=== PATIENT | male | born 1950 | race Caucasian/White ===

== ENCOUNTER 2020-04-27 07:13 | Inpatient (IN) | payer OTHER ==
[~2020-04-27] VITALS: Ht 188 cm; Wt 105.5 kg
[~2020-04-27 07:13] MED LIST: NAPR-996 PO
[2020-04-27] MEDS ORDERED: methylPREDNISolone sod succ 125mg/2ml vial IV ONE (09:25)
[2020-04-27] MEDS ORDERED: normal saline 1000ML IV soln IVB ONE ×2 (09:25→11:20)
[2020-04-27 10:04] LABS: BASOPHILS % (AUTO) 0.2 % (0-1); EOSINOPHILS % (AUTO) 0.1 % (0-6); HEMATOCRIT 53.5 % (42.0-52.0); LYMPHOCYTES # (AUTO) 1.1 X10'3 (1.1-4.8); LYMPHOCYTES % (AUTO) 7.4 % (21-51); MEAN CORPUSCULAR HEMOGLOBIN 29.3 PG (27.0-31.0); MEAN CORPUSCULAR HGB CONC 33.6 g/dL (33.0-36.5); MEAN CORPUSCULAR VOLUME 87.1 FL (78-98); MEAN PLATELET VOLUME 7.6 FL (7.4-10.4); MONOCYTES % (AUTO) 6.9 % (2-12); NEUTROPHILS # (AUTO) 12.4 X10'3 (1.8-7.7); NEUTROPHILS % (AUTO) 85.4 % (42-75); PLATELET COUNT 236 X10'3 (140-440); RED BLOOD COUNT 6.14 X10'6 (4.70-6.10); RED CELL DISTRIBUTION WIDTH 13.4 % (11.5-14.5); WHITE BLOOD COUNT 14.6 X10'3 (4.5-11.0)
[2020-04-27 10:16] LABS: ALANINE AMINOTRANSFERASE 29 U/L (12-78); ALBUMIN 3.3 G/DL (3.4-5.0); ALBUMIN/GLOBULIN RATIO 0.7 (1.1-1.5); ALKALINE PHOSPHATASE 99 IU/L (46-116); ANION GAP 10 (8-16); ASPARTATE AMINO TRANSFERASE 22 U/L (10-37); BILIRUBIN,TOTAL 0.8 MG/DL (0.1-1.0); BLOOD UREA NITROGEN 34 MG/DL (7-18); BUN/CREATININE RATIO 16.1 (5.4-32.0); CALCIUM 9.7 MG/DL (8.5-10.1); CHLORIDE 98 MMOL/L (99-107); CREATININE 2.11 MG/DL (0.60-1.10); GLUCOSE 142 MG/DL (70-104); POTASSIUM 3.8 MMOL/L (3.5-5.1); SODIUM 135 MMOL/L (135-145); TOTAL CARBON DIOXIDE 26.6 MMOL/L (24-32); TOTAL PROTEIN 8.2 G/DL (6.4-8.2); eGFR 31 ML/MIN
[2020-04-27 10:19] LABS: PARTIAL THROMBOPLASTIN TIME 31 SECONDS (22-32)
[2020-04-27 10:21] LABS: D-DIMER > 35.20 MG/L FEU (0-0.50)
[2020-04-27] MEDS ORDERED: aspirin 81mg tab.chew PO ONE (10:35)
[2020-04-27 10:40] LABS: LACTATE DEHYDROGENASE 299 U/L (85-227)
[2020-04-27] MEDS ORDERED: nitroGLYCERIN 0.4mg/hour patch TD ONE (12:00)
[2020-04-27] MEDS ORDERED: ATOR20TA66 PO (12:04)
[2020-04-27] MEDS ORDERED: LISI1TAB32 PO (12:04)
[2020-04-27] MEDS ORDERED: heparin 10,000 units/1 ML INJ IV ONE (14:20)
[2020-04-27] MEDS: heparin 25,000 UNIT/250ml bag 250 ML IV SCH (14:47)
[2020-04-27] MEDS ORDERED: LISI1TAB29 PO (15:22)
[2020-04-27 16:33] LABS: CLARITY,URINE SLIGHTLY CLOUDY (Clear); COLOR,URINE YELLOW (Yellow); GLUCOSE, URINE NEGATIVE (Neg); KETONES,URINE TRACE mg/dl (Neg); LEUKOCYTE ESTERASE ,URINE NEGATIVE (Neg); NITRITES, URINE NEGATIVE (Neg); OCCULT BLOOD,URINE MODERATE (Neg); PH,URINE 5.5 (4.8-8.0); PROTEIN,URINE TRACE mg/dl (Neg); UROBILINOGEN,URINE 0.2 E.U/dL (0.2-1.0)
[2020-04-27 16:43] LABS: UA COLLECTION TYPE VOIDED
[2020-04-27 16:45] LABS: COARSE GRANULAR CAST 0-3 /LPF (NEGATIVE); HYALINE CASTS >30 /LPF (NEGATIVE); MUCUS STRANDS MANY /LPF (Neg); SQUAMOUS EPITHELIAL CELL,UR FEW /LPF (FEW)
[2020-04-27 16:47] LABS: AMORPHOUS URATES 1+; BACTERIA,URINE NONE SEEN /HPF (Neg); WBC,URINE 0-4 /HPF (0-4)
[2020-04-27] MEDS ORDERED: potassium CL 10mEq/100ml bag 100 ML IV PRN ×2 (18:30)
[2020-04-27] MEDS ORDERED: morphine 2 MG/ML inj. syringe IV PRN ×2 (18:30)
[2020-04-27] MEDS ORDERED: magnesium 4gm in 100ml NS 100 ML IV PRN (18:30)
[2020-04-27] MEDS ORDERED: magnesium 2GM in 50ml NS 50 ML IV PRN (18:30)
[2020-04-27] MEDS ORDERED: ondansetron/PF 4mg/2ml inj IV PRN (18:30)
[2020-04-27] MEDS ORDERED: magnesium hydroxide 30ml (MOM) UD suspension PO PRN (18:30)
[2020-04-27] MEDS ORDERED: mag hydrox/Alum hydrox/simeth 30ml oral suspension PO PRN (18:30)
[2020-04-27] MEDS ORDERED: diphenhydrAMINE 25mg capsule PO PRN (18:30)
[2020-04-27] MEDS ORDERED: potassium Cl 20 mEq SR tablet PO PRN ×2 (18:30)
[2020-04-27] MEDS ORDERED: ipratropium/albuterol 3ml nebule NEB PRN (18:30)
[2020-04-27] MEDS ORDERED: bisacodyl 10mg suppository rectal RC PRN (18:30)
[2020-04-27] MEDS ORDERED: acetaminophen 325mg tablet PO PRN ×2 (18:30)
[2020-04-27] MEDS ORDERED: magnesium Cl slow-release 64mg tablet PO PRN (18:30)
[2020-04-27] MEDS ORDERED: acetaminophen 650mg rectal suppository RC PRN (18:30)
--- NOTE | 2020-04-27 18:37 | NUR ---
PATIENTS DAUGHTER CALLED PHONE # [phone]
--- NOTE | 2020-04-27 18:59 | NUR ---
technology analyst at bedside
[2020-04-27 19:09] LABS: HEMOGLOBIN A1C 5.9 % (4.5-6.2)
[2020-04-27] MEDS: K and/or MAG REPLACEMENT MC SCH (20:00)
--- NOTE | 2020-04-27 20:03 | NUR ---
CALLED PCU TO GIVE REPORT
[2020-04-27 20:45] VITALS: BP 128/64
--- NOTE | 2020-04-27 20:45 | NUR ---
RECEIVED PATIENT TO ROOM 3023C IN STABLE CONDITION
[2020-04-27] MEDS: ipratropium/albuterol 3ml nebule NEB SCH (21:29)
[2020-04-28 02:00] VITALS: BP 130/74
[2020-04-28 02:13] LABS: ALANINE AMINOTRANSFERASE 22 U/L (12-78); ALBUMIN 2.8 G/DL (3.4-5.0); ALBUMIN/GLOBULIN RATIO 0.6 (1.1-1.5); ALKALINE PHOSPHATASE 87 IU/L (46-116); ANION GAP 9 (8-16); ASPARTATE AMINO TRANSFERASE 24 U/L (10-37); BILIRUBIN,TOTAL 0.6 MG/DL (0.1-1.0); BLOOD UREA NITROGEN 41 MG/DL (7-18); BUN/CREATININE RATIO 22.8 (5.4-32.0); CALCIUM 9.3 MG/DL (8.5-10.1); CHLORIDE 105 MMOL/L (99-107); CHOL/HDL RATIO 4.6 (0.00-4.99); CHOLESTEROL 146 MG/DL (0-200); GLUCOSE 202 MG/DL (70-104); HDL CHOLESTEROL 32 MG/DL (35-60); LDL CHOLESTEROL 102 MG/DL (50-100); MAGNESIUM 2.1 MG/DL (1.5-2.4); PHOSPHORUS 1.5 MG/DL (2.3-4.5); POTASSIUM 4.1 MMOL/L (3.5-5.1); SODIUM 138 MMOL/L (135-145); TOTAL CARBON DIOXIDE 24.1 MMOL/L (24-32); TOTAL PROTEIN 7.4 G/DL (6.4-8.2); TRIGLYCERIDES 105 MG/DL (20-135); eGFR 38 ML/MIN
[2020-04-28 02:19] LABS: BASOPHILS % (AUTO) 0.2 % (0-1); EOSINOPHILS % (AUTO) 0 % (0-6); HEMATOCRIT 48.3 % (42.0-52.0); HEMOGLOBIN 16.3 g/dl (14.0-17.9); LYMPHOCYTES # (AUTO) 0.8 X10'3 (1.1-4.8); LYMPHOCYTES % (AUTO) 5.3 % (21-51); MEAN CORPUSCULAR HEMOGLOBIN 29.5 PG (27.0-31.0); MEAN CORPUSCULAR HGB CONC 33.8 g/dL (33.0-36.5); MEAN CORPUSCULAR VOLUME 87.1 FL (78-98); MEAN PLATELET VOLUME 7.7 FL (7.4-10.4); MONOCYTES # (AUTO) 0.8 X10'3 (0-0.9); MONOCYTES % (AUTO) 5.6 % (2-12); NEUTROPHILS # (AUTO) 12.8 X10'3 (1.8-7.7); NEUTROPHILS % (AUTO) 88.9 % (42-75); PLATELET COUNT 225 X10'3 (140-440); RED BLOOD COUNT 5.54 X10'6 (4.70-6.10); RED CELL DISTRIBUTION WIDTH 13.4 % (11.5-14.5); WHITE BLOOD COUNT 14.4 X10'3 (4.5-11.0)
[2020-04-28] MEDS: normal saline 1000ml 1,000 ML IV SCH ×4 (02:26→23:04)
[2020-04-28] MEDS: heparin 10,000 units/1 ML INJ IV PRN ×2 (02:27→12:02)
[2020-04-28] MEDS: ipratropium/albuterol 3ml nebule NEB SCH ×4 (03:08→21:30)
[2020-04-28 06:00] VITALS: BP 154/92
--- NOTE | 2020-04-28 06:16 | NUR ---
REPORT GIVEN TO DARYA SAEED
--- NOTE | 2020-04-28 06:33 | NUR ---
Patient in room U 3023. I have received report from Floresita SAEED and had the opportunity to ask questions and assume patient care. Patient was sleeping at time of report.
[2020-04-28] MEDS: HYDROchlorothiazide 25mg tablet PO SCH (07:07)
[2020-04-28] MEDS: lisinopril 20mg tablet PO SCH (07:09)
[2020-04-28] MEDS: heparin 25,000 UNIT/250ml bag 250 ML IV SCH ×3 (07:18→20:53)
[2020-04-28] MEDS: K and/or MAG REPLACEMENT MC SCH ×2 (08:00→20:00)
--- NOTE | 2020-04-28 09:39 | NUR ---
Paged Dr. Moon regarding critical "Carlos Jackson RM 1394T critical PTT 127, following protocol. Thanks, Sherry SAEED [id number]"
[2020-04-28 11:00] VITALS: BP 127/87
[2020-04-28 15:00] VITALS: BP 140/91
[2020-04-28 18:00] VITALS: BP 141/96
--- NOTE | 2020-04-28 18:19 | NUR ---
[place] documentation: I have reviewed and agree with all interventions, assessments performed and documented by CHRISTOPHE Powell.
--- NOTE | 2020-04-28 18:20 | NUR ---
[place] Medication Administration: For this medication-pass time frame, all medication were reviewed, dispensed, administered and documented per hospital policy by CHRISTOPHE Powell.
--- NOTE | 2020-04-28 18:42 | NUR ---
Problems reprioritized. Patient report given, questions answered & plan of care reviewed with CHRISTOPHE Oh. Informed nurse that pt's DVT PTT should be resulting soon, it should have been drawn at 1800, call lab if results don't populate soon. Pt resting comfortably. All pt needs met at this time.
[2020-04-28 22:00] VITALS: BP 137/87
[2020-04-29] VITALS (10 sets, daily range): BP systolic 112–156; BP diastolic 72–92
[2020-04-29] MEDS: ipratropium/albuterol 3ml nebule NEB SCH ×4 (03:07→21:07)
[2020-04-29] MEDS: heparin 25,000 UNIT/250ml bag 250 ML IV SCH (03:23)
[2020-04-29 04:01] LABS: BASOPHILS # (AUTO) 0.1 X10'3 (0-0.2); BASOPHILS % (AUTO) 0.7 % (0-1); EOSINOPHILS % (AUTO) 0.2 % (0-6); HEMATOCRIT 43.4 % (42.0-52.0); HEMOGLOBIN 14.7 g/dl (14.0-17.9); LYMPHOCYTES # (AUTO) 1.7 X10'3 (1.1-4.8); LYMPHOCYTES % (AUTO) 11.3 % (21-51); MEAN CORPUSCULAR HEMOGLOBIN 29.3 PG (27.0-31.0); MEAN CORPUSCULAR HGB CONC 33.8 g/dL (33.0-36.5); MEAN CORPUSCULAR VOLUME 86.7 FL (78-98); MEAN PLATELET VOLUME 7.7 FL (7.4-10.4); MONOCYTES # (AUTO) 0.9 X10'3 (0-0.9); MONOCYTES % (AUTO) 6.3 % (2-12); NEUTROPHILS # (AUTO) 12.2 X10'3 (1.8-7.7); NEUTROPHILS % (AUTO) 81.5 % (42-75); PLATELET COUNT 224 X10'3 (140-440); RED BLOOD COUNT 5.01 X10'6 (4.70-6.10); RED CELL DISTRIBUTION WIDTH 13.4 % (11.5-14.5)
[2020-04-29 04:23] LABS: ALANINE AMINOTRANSFERASE 43 U/L (12-78); ALBUMIN 2.4 G/DL (3.4-5.0); ALBUMIN/GLOBULIN RATIO 0.6 (1.1-1.5); ALKALINE PHOSPHATASE 78 IU/L (46-116); ANION GAP 7 (8-16); ASPARTATE AMINO TRANSFERASE 33 U/L (10-37); BILIRUBIN,TOTAL 0.4 MG/DL (0.1-1.0); BLOOD UREA NITROGEN 37 MG/DL (7-18); BUN/CREATININE RATIO 26.2 (5.4-32.0); CALCIUM 8.8 MG/DL (8.5-10.1); CHLORIDE 107 MMOL/L (99-107); CREATININE 1.41 MG/DL (0.60-1.10); GLUCOSE 125 MG/DL (70-104); MAGNESIUM 1.9 MG/DL (1.5-2.4); PHOSPHORUS 2.1 MG/DL (2.3-4.5); POTASSIUM 4.1 MMOL/L (3.5-5.1); SODIUM 140 MMOL/L (135-145); TOTAL CARBON DIOXIDE 25.7 MMOL/L (24-32); TOTAL PROTEIN 6.3 G/DL (6.4-8.2); eGFR 50 ML/MIN
--- NOTE | 2020-04-29 06:00 | NUR ---
Patient in room PCU 3023C. I have received report from Althea SAEED and had the opportunity to ask questions and assume patient care.
[2020-04-29] MEDS: K and/or MAG REPLACEMENT MC SCH ×2 (08:00→20:00)
[2020-04-29] MEDS: HYDROchlorothiazide 25mg tablet PO SCH (09:33)
[2020-04-29] MEDS: lisinopril 20mg tablet PO SCH (09:33)
[2020-04-29] MEDS: normal saline 1000ml 1,000 ML IV SCH ×2 (09:35→18:57)
[2020-04-29] MEDS ORDERED: iohexol 350MG/ML 100ml bottle IV ONE (12:15)
--- NOTE | 2020-04-29 12:41 | NUR ---
I have reviewed and agree with all medications administered and interventions performed by DISEASE CONTROL INSPECTOR Student(HOWARD MARTINEZ
[2020-04-29] MEDS ORDERED: midazolam 2 mg/2 ml injection ONE (15:15)
[2020-04-29] MEDS ORDERED: fentaNYL/PF 50MCG/1 ML 2ML syringe ONE (15:15)
[2020-04-29] MEDS ORDERED: iohexol 300mg/ml 100ml inj. ONE (15:25)
[2020-04-29] MEDS ORDERED: LIDOcaine 1%/PF 5ML 10 MG/ML VIAL ONE (15:25)
--- NOTE | 2020-04-29 16:50 | NUR ---
Pt taken down to Angio with Angio nurse for cath placement for TPA
[2020-04-29] MEDS ORDERED: diphenhydrAMINE 50 mg/ml inj ONE (17:09)
--- NOTE | 2020-04-29 17:55 | NUR ---
pt arrived from IR at this time. he is pleasant. alert and oriented. able to read lips. vital signs WNL's on 2L NC. continue to monitor.
--- NOTE | 2020-04-29 18:10 | NUR ---
Pt reached 4 hour timur for lying flat. groin clean dry and intact. Pt sitting up eating dinner now Addendum: 04/29/20 at 1832 by Trae Caruso RN wrong pt.
--- NOTE | 2020-04-29 18:32 | NUR ---
Problems reprioritized. Patient report given, questions answered & plan of care reviewed with Valerie SAEED.
[2020-04-29] MEDS: HYDROcodone/acetaminophen 5mg/325mg tablet PO PRN (21:03)
[2020-04-29] MEDS: tPA-cathflo 2mg/2ml IV flush 4 MG in normal saline 100ml IV soln 100 ML ICATH SCH (21:17)
[2020-04-29] MEDS: heparin 1,000 UNITS/NS 500ml 500 ML IV SCH (21:24)
[2020-04-30] VITALS (17 sets, daily range): BP systolic 127–158; BP diastolic 76–91
[2020-04-30] MEDS: tPA-cathflo 2mg/2ml IV flush 4 MG in normal saline 100ml IV soln 100 ML ICATH SCH ×4 (00:40→09:18)
[2020-04-30] MEDS: HYDROcodone/acetaminophen 5mg/325mg tablet PO PRN (01:42)
[2020-04-30] MEDS: ipratropium/albuterol 3ml nebule NEB SCH ×4 (02:00→20:38)
[2020-04-30] MEDS: heparin 1,000 UNITS/NS 500ml 500 ML IV SCH (02:24)
[2020-04-30] MEDS: normal saline 1000ml 1,000 ML IV SCH ×2 (04:28→13:56)
[2020-04-30 05:11] LABS: BASOPHILS % (AUTO) 0.3 % (0-1); EOSINOPHILS # (AUTO) 0.1 X10'3 (0-0.9); HEMATOCRIT 43.4 % (42.0-52.0); HEMOGLOBIN 14.6 g/dl (14.0-17.9); LYMPHOCYTES # (AUTO) 1.2 X10'3 (1.1-4.8); LYMPHOCYTES % (AUTO) 11.7 % (21-51); MEAN CORPUSCULAR HEMOGLOBIN 29.3 PG (27.0-31.0); MEAN CORPUSCULAR HGB CONC 33.8 g/dL (33.0-36.5); MEAN CORPUSCULAR VOLUME 86.8 FL (78-98); MEAN PLATELET VOLUME 7.6 FL (7.4-10.4); MONOCYTES # (AUTO) 0.9 X10'3 (0-0.9); MONOCYTES % (AUTO) 8.7 % (2-12); NEUTROPHILS # (AUTO) 7.9 X10'3 (1.8-7.7); NEUTROPHILS % (AUTO) 78.3 % (42-75); PLATELET COUNT 197 X10'3 (140-440); RED BLOOD COUNT 4.99 X10'6 (4.70-6.10); RED CELL DISTRIBUTION WIDTH 13.5 % (11.5-14.5); WHITE BLOOD COUNT 10.1 X10'3 (4.5-11.0)
[2020-04-30 05:26] LABS: ALANINE AMINOTRANSFERASE 43 U/L (12-78); ALBUMIN 2.4 G/DL (3.4-5.0); ALBUMIN/GLOBULIN RATIO 0.6 (1.1-1.5); ALKALINE PHOSPHATASE 77 IU/L (46-116); ANION GAP 9 (8-16); ASPARTATE AMINO TRANSFERASE 26 U/L (10-37); BILIRUBIN,TOTAL 0.6 MG/DL (0.1-1.0); BLOOD UREA NITROGEN 23 MG/DL (7-18); BUN/CREATININE RATIO 17.4 (5.4-32.0); CALCIUM 8.3 MG/DL (8.5-10.1); CHLORIDE 106 MMOL/L (99-107); CREATININE 1.32 MG/DL (0.60-1.10); GLUCOSE 104 MG/DL (70-104); MAGNESIUM 1.7 MG/DL (1.5-2.4); PHOSPHORUS 3.4 MG/DL (2.3-4.5); SODIUM 139 MMOL/L (135-145); TOTAL CARBON DIOXIDE 24.1 MMOL/L (24-32); TOTAL PROTEIN 6.2 G/DL (6.4-8.2); eGFR 54 ML/MIN
--- NOTE | 2020-04-30 06:15 | NUR ---
Patient in room CICU 2013. I have received report from RN and had the opportunity to ask questions and assume patient care.
[2020-04-30] MEDS: lisinopril 20mg tablet PO SCH (08:49)
[2020-04-30] MEDS: HYDROchlorothiazide 25mg tablet PO SCH (08:49)
[2020-04-30] MEDS: K and/or MAG REPLACEMENT MC SCH ×2 (08:51→20:00)
[2020-04-30] MEDS: HYDROcodone/acetaminophen 10/325mg tab PO PRN ×3 (10:49→17:38)
[2020-04-30] MEDS ORDERED: heparin 10,000 units/1 ML INJ IV PRN (11:50)
[2020-04-30] MEDS ORDERED: heparin 10,000 units/1 ML INJ IV ONE (11:50)
--- NOTE | 2020-04-30 12:00 | NUR ---
RT IJ cath removed by IR at 1100. Dressing CDL
[2020-04-30] MEDS: heparin 25,000 UNIT/250ml bag 250 ML IV SCH (13:00)
--- NOTE | 2020-04-30 14:30 | NUR ---
Problems reprioritized. Patient report given, questions answered & plan of care reviewed with Trae SAEED.
--- NOTE | 2020-04-30 14:34 | NUR ---
received report from Thuy SAEED CICU. had opportunity to ask questions concerning Pt care. Awaiting Pt arrival to room 3011S
--- NOTE | 2020-04-30 15:15 | NUR ---
PT taken to 3014b with al belongings.
--- NOTE | 2020-04-30 18:45 | NUR ---
Problems reprioritized. Patient report given, questions answered & plan of care reviewed with Maximo RN
--- NOTE | 2020-04-30 19:44 | NUR ---
Page Sent to Nic per critical high PTT promotional table spacer PAGER ID: [phone] MESSAGE: [id number] - Ankita Gonzalez 69M - Pt critically high DVT PTT of 139. Protocol to inform you, stopped heparin gtt now, will hold 2hrs, will decrease rate by 3units/kg/hr. Redraw PTT in 6hrs from rate change. [phone] Maximo
[2020-05-01] MEDS: normal saline 1000ml 1,000 ML IV SCH ×3 (01:37→23:46)
[2020-05-01] MEDS: ipratropium/albuterol 3ml nebule NEB SCH ×4 (02:00→20:23)
[2020-05-01] MEDS: HYDROcodone/acetaminophen 10/325mg tab PO PRN ×4 (02:15→20:19)
[2020-05-01 02:34] VITALS: BP 162/86
[2020-05-01] MEDS: heparin 25,000 UNIT/250ml bag 250 ML IV SCH ×2 (04:32→18:51)
[2020-05-01 05:48] LABS: ALANINE AMINOTRANSFERASE 34 U/L (12-78); ALBUMIN 2.4 G/DL (3.4-5.0); ALBUMIN/GLOBULIN RATIO 0.6 (1.1-1.5); ALKALINE PHOSPHATASE 75 IU/L (46-116); ANION GAP 6 (8-16); ASPARTATE AMINO TRANSFERASE 18 U/L (10-37); BILIRUBIN,TOTAL 0.6 MG/DL (0.1-1.0); BLOOD UREA NITROGEN 17 MG/DL (7-18); BUN/CREATININE RATIO 12.3 (5.4-32.0); CHLORIDE 105 MMOL/L (99-107); CREATININE 1.38 MG/DL (0.60-1.10); GLUCOSE 110 MG/DL (70-104); MAGNESIUM 1.7 MG/DL (1.5-2.4); PHOSPHORUS 2.9 MG/DL (2.3-4.5); SODIUM 138 MMOL/L (135-145); TOTAL CARBON DIOXIDE 26.7 MMOL/L (24-32); TOTAL PROTEIN 6.4 G/DL (6.4-8.2); eGFR 51 ML/MIN
[2020-05-01 06:00] VITALS: BP 153/86
[2020-05-01 06:28] LABS: BASOPHILS % (AUTO) 0.2 % (0-1); EOSINOPHILS # (AUTO) 0.2 X10'3 (0-0.9); HEMATOCRIT 43.1 % (42.0-52.0); HEMOGLOBIN 14.8 g/dl (14.0-17.9); LYMPHOCYTES # (AUTO) 1.1 X10'3 (1.1-4.8); LYMPHOCYTES % (AUTO) 11.4 % (21-51); MEAN CORPUSCULAR HEMOGLOBIN 30.2 PG (27.0-31.0); MEAN CORPUSCULAR HGB CONC 34.5 g/dL (33.0-36.5); MEAN CORPUSCULAR VOLUME 87.5 FL (78-98); MEAN PLATELET VOLUME 7.6 FL (7.4-10.4); MONOCYTES # (AUTO) 0.7 X10'3 (0-0.9); MONOCYTES % (AUTO) 7.7 % (2-12); NEUTROPHILS # (AUTO) 7.6 X10'3 (1.8-7.7); NEUTROPHILS % (AUTO) 78.7 % (42-75); PLATELET COUNT 201 X10'3 (140-440); RED BLOOD COUNT 4.92 X10'6 (4.70-6.10); RED CELL DISTRIBUTION WIDTH 13.2 % (11.5-14.5); WHITE BLOOD COUNT 9.7 X10'3 (4.5-11.0)
--- NOTE | 2020-05-01 06:39 | NUR ---
Problems reprioritized. Patient report given, questions answered & plan of care reviewed with Carmen SAEED.
--- NOTE | 2020-05-01 06:47 | NUR ---
Patient in room PCU 3014. I have received report from Maximo SAEED and had the opportunity to ask questions and assume patient care.
[2020-05-01] MEDS: K and/or MAG REPLACEMENT MC SCH ×2 (07:31→20:00)
[2020-05-01] MEDS: HYDROchlorothiazide 25mg tablet PO SCH (07:41)
[2020-05-01] MEDS: lisinopril 20mg tablet PO SCH (07:41)
[2020-05-01 11:00] VITALS: BP 134/84
[2020-05-01 15:00] VITALS: BP 170/88
[2020-05-01 18:00] VITALS: BP 159/88
--- NOTE | 2020-05-01 18:12 | NUR ---
Patient in room PCU 3014. I have received report from Carmen SAEED and had the opportunity to ask questions and assume patient care.
--- NOTE | 2020-05-01 18:15 | NUR ---
Problems reprioritized. Patient report given, questions answered & plan of care reviewed with Osmel.
--- NOTE | 2020-05-01 18:55 | NUR ---
IV Heparin dose is therapeutic thoughout shift, The dose is 1400 units
[2020-05-01 22:00] VITALS: BP 161/85
--- NOTE | 2020-05-02 00:41 | NUR ---
2330 PTT is therapeutic at 51, no change in rate nor bolus required. Will reschedule PTT for 529 .
[2020-05-02] MEDS: heparin 25,000 UNIT/250ml bag 250 ML IV SCH ×2 (00:55→21:13)
[2020-05-02 02:00] VITALS: BP 169/90
[2020-05-02] MEDS: ipratropium/albuterol 3ml nebule NEB SCH ×4 (02:00→19:57)
[2020-05-02] MEDS: HYDROcodone/acetaminophen 10/325mg tab PO PRN ×3 (02:12→22:59)
[2020-05-02 06:00] VITALS: BP 158/87
[2020-05-02 06:09] LABS: BASOPHILS % (AUTO) 0.2 % (0-1); EOSINOPHILS # (AUTO) 0.3 X10'3 (0-0.9); EOSINOPHILS % (AUTO) 2.5 % (0-6); HEMATOCRIT 42.1 % (42.0-52.0); HEMOGLOBIN 14.2 g/dl (14.0-17.9); LYMPHOCYTES # (AUTO) 0.9 X10'3 (1.1-4.8); LYMPHOCYTES % (AUTO) 8.1 % (21-51); MEAN CORPUSCULAR HEMOGLOBIN 29.3 PG (27.0-31.0); MEAN CORPUSCULAR HGB CONC 33.7 g/dL (33.0-36.5); MEAN CORPUSCULAR VOLUME 87.1 FL (78-98); MEAN PLATELET VOLUME 7.5 FL (7.4-10.4); MONOCYTES # (AUTO) 0.8 X10'3 (0-0.9); MONOCYTES % (AUTO) 7.6 % (2-12); NEUTROPHILS % (AUTO) 81.6 % (42-75); PLATELET COUNT 231 X10'3 (140-440); RED BLOOD COUNT 4.83 X10'6 (4.70-6.10); RED CELL DISTRIBUTION WIDTH 13.4 % (11.5-14.5)
[2020-05-02 06:30] LABS: ALANINE AMINOTRANSFERASE 28 U/L (12-78); ALBUMIN 2.3 G/DL (3.4-5.0); ALBUMIN/GLOBULIN RATIO 0.5 (1.1-1.5); ALKALINE PHOSPHATASE 85 IU/L (46-116); ANION GAP 9 (8-16); ASPARTATE AMINO TRANSFERASE 23 U/L (10-37); BILIRUBIN,TOTAL 0.5 MG/DL (0.1-1.0); BLOOD UREA NITROGEN 17 MG/DL (7-18); BUN/CREATININE RATIO 13.3 (5.4-32.0); CHLORIDE 101 MMOL/L (99-107); CREATININE 1.28 MG/DL (0.60-1.10); GLUCOSE 114 MG/DL (70-104); MAGNESIUM 1.7 MG/DL (1.5-2.4); PHOSPHORUS 2.8 MG/DL (2.3-4.5); POTASSIUM 3.9 MMOL/L (3.5-5.1); SODIUM 134 MMOL/L (135-145); TOTAL CARBON DIOXIDE 24.1 MMOL/L (24-32); TOTAL PROTEIN 6.5 G/DL (6.4-8.2); eGFR 56 ML/MIN
--- NOTE | 2020-05-02 06:48 | NUR ---
Problems reprioritized. Patient report given, questions answered & plan of care reviewed with Carmen SAEED.
[2020-05-02] MEDS: K and/or MAG REPLACEMENT MC SCH ×2 (08:00→20:00)
[2020-05-02] MEDS: HYDROchlorothiazide 25mg tablet PO SCH (08:11)
[2020-05-02] MEDS: atorvastatin 20mg tablet PO SCH (08:11)
[2020-05-02] MEDS: lisinopril 20mg tablet PO SCH (08:12)
[2020-05-02] MEDS: normal saline 1000ml 1,000 ML IV SCH ×2 (08:12→17:17)
[2020-05-02 11:00] VITALS: BP 155/85
[2020-05-02 15:00] VITALS: BP 153/88
--- NOTE | 2020-05-02 16:14 | NUR ---
Initial: Pt admit DX bilateral severe PE s/p TPA, acute DVT R leg, type II NE r/t demand ischemia, acute renal failure, and acute respiratory failure per MD note. PO 75-100% avg heart healthy meals meeting needs. LBM 04/29. No nutrition concerns at this time. Will continue to monitor. Rec: 1. continue heart healthy diet 2. routine bowel care 3. wt per rx Addendum: 05/02/20 at [address] Amended: Links added.
--- NOTE | 2020-05-02 17:00 | NUR ---
heparin rate is 1400 units with PTT resulted each 6 hours. The rate remains therapeutic at 1400 units
[2020-05-02 18:00] VITALS: BP 172/79
--- NOTE | 2020-05-02 18:36 | NUR ---
Patient in room PCU 3014. I have received report from Carmen SAEED and had the opportunity to ask questions and assume patient care.
[2020-05-02 22:00] VITALS: BP 139/81
[2020-05-03 02:00] VITALS: BP 146/83
[2020-05-03] MEDS: ipratropium/albuterol 3ml nebule NEB SCH ×4 (02:00→20:22)
[2020-05-03 03:03] LABS: BASOPHILS % (AUTO) 0.2 % (0-1); EOSINOPHILS # (AUTO) 0.3 X10'3 (0-0.9); EOSINOPHILS % (AUTO) 2.5 % (0-6); HEMATOCRIT 40.8 % (42.0-52.0); HEMOGLOBIN 13.7 g/dl (14.0-17.9); LYMPHOCYTES # (AUTO) 1.2 X10'3 (1.1-4.8); LYMPHOCYTES % (AUTO) 11.8 % (21-51); MEAN CORPUSCULAR HEMOGLOBIN 29.1 PG (27.0-31.0); MEAN CORPUSCULAR HGB CONC 33.5 g/dL (33.0-36.5); MEAN CORPUSCULAR VOLUME 86.9 FL (78-98); MEAN PLATELET VOLUME 7.4 FL (7.4-10.4); MONOCYTES # (AUTO) 0.9 X10'3 (0-0.9); MONOCYTES % (AUTO) 9.2 % (2-12); NEUTROPHILS # (AUTO) 7.6 X10'3 (1.8-7.7); NEUTROPHILS % (AUTO) 76.3 % (42-75); PLATELET COUNT 270 X10'3 (140-440); RED CELL DISTRIBUTION WIDTH 13.6 % (11.5-14.5)
[2020-05-03 03:29] LABS: ALANINE AMINOTRANSFERASE 57 U/L (12-78); ALBUMIN 2.2 G/DL (3.4-5.0); ALBUMIN/GLOBULIN RATIO 0.5 (1.1-1.5); ALKALINE PHOSPHATASE 79 IU/L (46-116); ANION GAP 6 (8-16); ASPARTATE AMINO TRANSFERASE 45 U/L (10-37); BILIRUBIN,TOTAL 0.6 MG/DL (0.1-1.0); BLOOD UREA NITROGEN 14 MG/DL (7-18); BUN/CREATININE RATIO 10.4 (5.4-32.0); CALCIUM 9.2 MG/DL (8.5-10.1); CHLORIDE 101 MMOL/L (99-107); CREATININE 1.35 MG/DL (0.60-1.10); GLUCOSE 115 MG/DL (70-104); MAGNESIUM 1.7 MG/DL (1.5-2.4); PHOSPHORUS 3.1 MG/DL (2.3-4.5); POTASSIUM 3.9 MMOL/L (3.5-5.1); SODIUM 134 MMOL/L (135-145); TOTAL CARBON DIOXIDE 27.2 MMOL/L (24-32); TOTAL PROTEIN 6.3 G/DL (6.4-8.2); eGFR 52 ML/MIN
[2020-05-03] MEDS: normal saline 1000ml 1,000 ML IV SCH ×2 (04:41→14:30)
--- NOTE | 2020-05-03 05:32 | NUR ---
when replacing the heparin bag, the infusion rate did not change to 16mL/hr. the rate remained the same at 17mL/hr. that is not correct. patient is at therapeutic levels with their DVT PTT labs at 67. no changes were made to the infusion rate per heparin gtt DVT protocol. Addendum: 05/03/20 at 0539 by Tommy Camara RN change the IV spread sheet to the correct infusion rate @16mL/hr for future and correct reference in the next PTT draw.
--- NOTE | 2020-05-03 06:18 | NUR ---
Problems reprioritized. Patient report given, questions answered & plan of care reviewed with Radha SAEED.
[2020-05-03] MEDS: K and/or MAG REPLACEMENT MC SCH ×2 (06:45→20:00)
[2020-05-03 07:00] VITALS: BP 144/77
[2020-05-03] MEDS: HYDROchlorothiazide 25mg tablet PO SCH (08:04)
[2020-05-03] MEDS: lisinopril 20mg tablet PO SCH (08:05)
[2020-05-03] MEDS: atorvastatin 20mg tablet PO SCH (08:05)
[2020-05-03] MEDS: HYDROcodone/acetaminophen 10/325mg tab PO PRN ×2 (08:05→15:19)
[2020-05-03] MEDS ORDERED: APIX5TAB3 PO (10:08)
[2020-05-03] MEDS: apixaban 5mg tablet PO SCH ×2 (10:32→19:31)
[2020-05-03 11:00] VITALS: BP 131/70
[2020-05-03 15:00] VITALS: BP 159/79
[2020-05-03 18:00] VITALS: BP 144/80
--- NOTE | 2020-05-03 18:11 | NUR ---
Problems reprioritized. Patient report given, questions answered & plan of care reviewed with Tommy ASEED.
--- NOTE | 2020-05-03 18:24 | NUR ---
Patient in room PCU 3014. I have received report from Radha SAEED and had the opportunity to ask questions and assume patient care.
[2020-05-03 22:00] VITALS: BP 157/74
[2020-05-03] MEDS: HYDROcodone/acetaminophen 5mg/325mg tablet PO PRN (22:26)
[2020-05-04] MEDS: normal saline 1000ml 1,000 ML IV SCH ×3 (00:35→22:34)
[2020-05-04 02:00] VITALS: BP 166/80
[2020-05-04] MEDS: ipratropium/albuterol 3ml nebule NEB SCH ×4 (02:45→19:48)
[2020-05-04 06:00] LABS: BASOPHILS % (AUTO) 0.5 % (0-1); EOSINOPHILS # (AUTO) 0.4 X10'3 (0-0.9); EOSINOPHILS % (AUTO) 4.1 % (0-6); HEMATOCRIT 42.1 % (42.0-52.0); HEMOGLOBIN 14.1 g/dl (14.0-17.9); LYMPHOCYTES % (AUTO) 11.5 % (21-51); MEAN CORPUSCULAR HEMOGLOBIN 29.1 PG (27.0-31.0); MEAN CORPUSCULAR HGB CONC 33.4 g/dL (33.0-36.5); MEAN CORPUSCULAR VOLUME 87.2 FL (78-98); MEAN PLATELET VOLUME 7.3 FL (7.4-10.4); MONOCYTES # (AUTO) 0.8 X10'3 (0-0.9); MONOCYTES % (AUTO) 9.1 % (2-12); NEUTROPHILS # (AUTO) 6.6 X10'3 (1.8-7.7); NEUTROPHILS % (AUTO) 74.8 % (42-75); PLATELET COUNT 290 X10'3 (140-440); RED BLOOD COUNT 4.82 X10'6 (4.70-6.10); RED CELL DISTRIBUTION WIDTH 13.5 % (11.5-14.5); WHITE BLOOD COUNT 8.8 X10'3 (4.5-11.0)
[2020-05-04 06:08] LABS: ALANINE AMINOTRANSFERASE 90 U/L (12-78); ALBUMIN 2.3 G/DL (3.4-5.0); ALBUMIN/GLOBULIN RATIO 0.5 (1.1-1.5); ALKALINE PHOSPHATASE 85 IU/L (46-116); ANION GAP 8 (8-16); ASPARTATE AMINO TRANSFERASE 58 U/L (10-37); BILIRUBIN,TOTAL 0.5 MG/DL (0.1-1.0); BLOOD UREA NITROGEN 18 MG/DL (7-18); CALCIUM 9.8 MG/DL (8.5-10.1); CHLORIDE 102 MMOL/L (99-107); CREATININE 1.29 MG/DL (0.60-1.10); GLUCOSE 101 MG/DL (70-104); MAGNESIUM 1.9 MG/DL (1.5-2.4); PHOSPHORUS 2.9 MG/DL (2.3-4.5); POTASSIUM 4.4 MMOL/L (3.5-5.1); SODIUM 134 MMOL/L (135-145); TOTAL CARBON DIOXIDE 24.4 MMOL/L (24-32); TOTAL PROTEIN 6.7 G/DL (6.4-8.2); eGFR 55 ML/MIN
--- NOTE | 2020-05-04 06:14 | NUR ---
Problems reprioritized. Patient report given, questions answered & plan of care reviewed with Ellyn SAEED.
--- NOTE | 2020-05-04 06:58 | NUR ---
Patient in room PCU 3014. I have received report from Tommy SAEED and had the opportunity to ask questions and assume patient care.
[2020-05-04 06:59] VITALS: BP 138/77
[2020-05-04] MEDS: K and/or MAG REPLACEMENT MC SCH ×2 (08:00→20:00)
[2020-05-04] MEDS: HYDROcodone/acetaminophen 10/325mg tab PO PRN ×3 (08:42→22:55)
[2020-05-04] MEDS: HYDROchlorothiazide 25mg tablet PO SCH (08:43)
[2020-05-04] MEDS: lisinopril 20mg tablet PO SCH (08:43)
[2020-05-04] MEDS: atorvastatin 20mg tablet PO SCH (08:43)
[2020-05-04] MEDS: apixaban 5mg tablet PO SCH ×2 (08:43→22:33)
[2020-05-04 11:00] VITALS: BP 146/73
--- NOTE | 2020-05-04 13:41 | NUR ---
PAGER ID: [phone] MESSAGE: Pt Carlos Luciano [id number] states he has gout and that is what is causing his knee pain. He takes allopurinol at home, can we add that to his emar? Ellyn Montoya Kunal [id number]
[2020-05-04 15:00] VITALS: BP 132/67
[2020-05-04] MEDS ORDERED: predniSONE 20 mg tablet PO ONE (17:30)
[2020-05-04 18:00] VITALS: BP 154/77
--- NOTE | 2020-05-04 18:33 | NUR ---
Patient in room PCU 3014. I have received report from CHRISTOPHE Montes and had the opportunity to ask questions and assume patient care.
--- NOTE | 2020-05-04 18:35 | NUR ---
Patient in room PCU 3014. I have received report from Ellyn SAEED and had the opportunity to ask questions and assume patient care.
[2020-05-04 22:00] VITALS: BP 170/89
[2020-05-04] MEDS ORDERED: HYDROchlorothiazide 25mg tablet PO ONE (22:45)
[2020-05-04] MEDS ORDERED: lisinopril 20mg tablet PO ONE (22:45)
--- NOTE | 2020-05-04 22:45 | NUR ---
Kimberly Cabrera with regard to patients elevated BP of 170/89,96. Orders received for 1 x dose of zestril and 1 x dose of hydrochlorothiazde (same dose as pt. on in the am).
[2020-05-05] VITALS: BP 163/80
[2020-05-05 02:00] VITALS: BP 147/76
[2020-05-05] MEDS: ipratropium/albuterol 3ml nebule NEB SCH ×2 (03:01→09:36)
[2020-05-05 06:00] VITALS: BP 128/78
[2020-05-05] MEDS: normal saline 1000ml 1,000 ML IV SCH ×2 (06:30→11:23)
--- NOTE | 2020-05-05 06:35 | NUR ---
Problems reprioritized. Patient report given, questions answered & plan of care reviewed with Ellyn SAEED.
--- NOTE | 2020-05-05 06:40 | NUR ---
Patient in room PCU 3014. I have received report from Jyoti SAEED and had the opportunity to ask questions and assume patient care.
[2020-05-05] MEDS ORDERED: predniSONE 20 mg tablet PO SCH (08:30)
[2020-05-05] MEDS: HYDROcodone/acetaminophen 10/325mg tab PO PRN (08:31)
[2020-05-05 08:32] VITALS: BP_SYST 128
[2020-05-05] MEDS: lisinopril 20mg tablet PO SCH (08:32)
[2020-05-05] MEDS: apixaban 5mg tablet PO SCH (08:32)
[2020-05-05] MEDS: HYDROchlorothiazide 25mg tablet PO SCH (08:32)
[2020-05-05] MEDS: atorvastatin 20mg tablet PO SCH (08:32)
[2020-05-05 09:11] LABS: ALBUMIN 2.5 G/DL (3.4-5.0); ANION GAP 6 (8-16); BLOOD UREA NITROGEN 20 MG/DL (7-18); BUN/CREATININE RATIO 16.3 (5.4-32.0); CALCIUM 9.8 MG/DL (8.5-10.1); CHLORIDE 103 MMOL/L (99-107); CREATININE 1.23 MG/DL (0.60-1.10); GLUCOSE 144 MG/DL (70-104); POTASSIUM 4.5 MMOL/L (3.5-5.1); SODIUM 134 MMOL/L (135-145); TOTAL CARBON DIOXIDE 25.2 MMOL/L (24-32); eGFR 58 ML/MIN
[2020-05-05 09:15] LABS: BASOPHILS % (AUTO) 0.4 % (0-1); EOSINOPHILS # (AUTO) 0.1 X10'3 (0-0.9); EOSINOPHILS % (AUTO) 0.7 % (0-6); HEMATOCRIT 43.2 % (42.0-52.0); HEMOGLOBIN 14.4 g/dl (14.0-17.9); LYMPHOCYTES % (AUTO) 9.4 % (21-51); MEAN CORPUSCULAR HEMOGLOBIN 29.1 PG (27.0-31.0); MEAN CORPUSCULAR HGB CONC 33.4 g/dL (33.0-36.5); MEAN CORPUSCULAR VOLUME 87.2 FL (78-98); MEAN PLATELET VOLUME 7.7 FL (7.4-10.4); MONOCYTES # (AUTO) 0.7 X10'3 (0-0.9); MONOCYTES % (AUTO) 5.9 % (2-12); NEUTROPHILS # (AUTO) 9.2 X10'3 (1.8-7.7); NEUTROPHILS % (AUTO) 83.6 % (42-75); PLATELET COUNT 352 X10'3 (140-440); RED BLOOD COUNT 4.96 X10'6 (4.70-6.10); RED CELL DISTRIBUTION WIDTH 13.3 % (11.5-14.5)
--- NOTE | 2020-05-05 16:18 | NUR ---
Pt states he no longer wants to go to rehab because he wants to go home. Dr. Bullock notified and patient decided to go AMA.
== END 2020-05-05 16:32 | disposition left against medical advice (07) | DRG 175 ==
LOC: ER 07:13 → ED HOLD 18:30 → PCU 3S 20:32 → CICU 2S 04-29 17:45 → PCU 3S 04-30 15:14
PROVIDERS: ADMIT Family Medicine; ATTEND Family Medicine
PROC: CB121ZZ Planar Nuclear Medicine Imaging of Lungs and Bronchi using Technetium 99m (Tc-99m) (ICD-10-PCS; principal; 2020-04-27)
PROC: B32T1ZZ Computerized Tomography (CT Scan) of Left Pulmonary Artery using Low Osmolar Contrast (ICD-10-PCS; 2020-04-29)
PROC: B3201ZZ Computerized Tomography (CT Scan) of Thoracic Aorta using Low Osmolar Contrast (ICD-10-PCS; 2020-04-29)
PROC: B32S1ZZ Computerized Tomography (CT Scan) of Right Pulmonary Artery using Low Osmolar Contrast (ICD-10-PCS; 2020-04-29)
PROC: 3E05317 Introduction of Other Thrombolytic into Peripheral Artery, Percutaneous Approach (ICD-10-PCS; 2020-04-29)
DX: I26.99 Other pulmonary embolism without acute cor pulmonale (principal); I21.A1 Myocardial infarction type 2; J96.01 Acute respiratory failure with hypoxia; E87.2 Acidosis; I82.401 Acute embolism and thrombosis of unspecified deep veins of right lower extremity; N17.9 Acute kidney failure, unspecified; E78.00 Pure hypercholesterolemia, unspecified; Z20.828 Contact with and (suspected) exposure to other viral communicable diseases; Z53.29 Procedure and treatment not carried out because of patient's decision for other reasons; E78.5 Hyperlipidemia, unspecified; M25.561 Pain in right knee; I10 Essential (primary) hypertension; Z87.891 Personal history of nicotine dependence
CPT/HCPCS: 36013; 36415; 37211; 70450; 71045; 71275; 75746; 76937; 78582; 80048; 80053; 80061; 81001; 83036; 83605; 83615; 83735; 83880; 84100; 84145; 84443; 84484; 85025; 85379; 85384; 85610; 85730; 87040; 87081; 87635; 93005; 93306; 93308; 93970; 94640; 94760; 96374; 97110; 97116; 97161; 97530; 99285; A9539; A9540; C1729; C1769; C1894; C9803; G0378; J1200; J1644; J2250; J2270; J2930; J2997; J3010; J7030; J7512; Q9967